=== PATIENT | female | born 1980 | race Hispanic/Latino ===

== ENCOUNTER 2024-05-30 06:18 | Day surgery (SDC) | payer BC, SELFPAY ==
[2024-05-30] VITALS (8 sets, daily range): BP systolic 125–156; BP diastolic 67–97; BMI 21.1
[2024-05-30] MEDS: TYLENOL 1000 MG PO (10:43)
[2024-05-30] MEDS: NORMOSOL-R/PLASMALYTE-A 1000 IV (11:16)
[2024-05-30 11:20] LABS: HCG, Urine Qualitative Screen Negative
--- NOTE | 2024-05-30 12:00 | W.SUR.PREOP ---
Pre-Operative Surgical Note
-
I have examined this patient prior to the performance of the scheduled procedure.
The patient's condition is unchanged from the time of the current History and
Physical and the patient is able to undergo the scheduled procedure.
--- NOTE | 2024-05-30 16:05 | SUR.PHASEI ---
1600 Dr. Mcfarlane reached out about pt's HR 113-122 resting and shoots up into the 130's with movement. No pain or nausea. ST on monitor. Okay to move to [facility]. Will continue to monitor.
--- NOTE | 2024-05-30 17:09 | W.IMMPOSTOP ---
Surgical Immed Post Op Note
-
Primary Surgeon: JOZEF Price MD
Assisting Surgeon:
Pre-op Diagnosis: macromastia, cervicodynia, intertrigo
Post-op Diagnosis: same
Procedure Performed: bilateral breast reduction
Anesthesia Type: General
Specimen / Cultures: Right and left breast tissue
Estimated Blood Loss: 30 cc
Complications: none
Operative Findings: well-perfused nipple areolar complexes
--- NOTE | 2024-05-30 17:09 | OR.RPT ---
Operative Report
Operative Report
date of surgery: 05/30/2024
Surgeon: JOZEF Price MD
Preoperative diagnosis: Macromastia, cervical neck pain, intertrigo
Postoperative diagnosis: Same
Procedure: Bilateral breast reduction
Anesthesia: General
Specimens: Right and left breast tissue
Complications: None
EBL: 30 cc
Indications for procedure: Patient is a 43-year-old female with a longstanding history of bilateral large pendulous breast. Her large breasts have caused her significant upper neck and back pain for which she has failed conservative management.
Conservative management consisted of supportive bras, double bras, physical manipulation NSAIDs etc. She presented desiring a bilateral breast reduction. She met criteria for medical necessity and a prior authorization was obtained. Risk of the
procedure were reviewed including nipple areolar necrosis, seroma, hematoma, delayed wound healing, asymmetry. She understood these risks desired to proceed
Procedure in detail: Patient was identified preoperatively and the surgical site was confirmed to be the bilateral breast. Bilateral Richey pattern superior medial pedicle breast reduction were marked out using the transposed inframammary fold as the
new nipple position. All questions were answered and consents were confirmed. Patient was taken back to the operating room placed supine on the table. Anesthesia was induced and the patient was prepped and draped in usual sterile fashion using
ChloraPrep solution. Timeout for patient safety was performed was confirmed the bilateral SCDs were in place and preoperative antibiotics have been administered. Procedure began with the injection of 1% lidocaine with epinephrine and the proposed
markings. Incision was made with a 15 blade for starting on the right breast. Breast tourniquet was placed and a 42 mm cookie cutter was used to elizabeth the new areola complex. The superior medial pedicle was de-epithelialized with a 10 blade. The
turnicot was released and dissection commenced with Bovie electrocautery. The inferior and lateral specimens were then removed And weighed. A total of 708 g was taken out of the right breast. This had achieved an adequate correction and the
wound was tentatively closed after ensuring meticulous hemostasis. Attention was then drawn to the left side where the exact same procedure was performed. 42 mm cookie cutter marked the new areola the breast was placed under a tourniquet and the
superior medial pedicle was de-epithelialized. 15 blade was used to incise the proposed markings and Bovie electrocautery was used to dissect out the pedicle down the chest wall and excised the inferior and lateral excess breast tissue. On this
side, a total of 856 g was removed, consistent with her baseline asymmetry preoperatively. Meticulous hemostasis was again ensured and the wound was tentatively closed. Patient was then sat upright to them evaluate the relative symmetry. It was
determined that appropriate symmetry had been achieved and an acceptable cosmetic result consistent with the patient's desires was reasonable. Patient was returned supine and a second look was performed on the right breast. the right breast
pocket was hemostatic and subpectoral intercostal blocks were performed with dilute Marcaine. The wound was then closed with 2-0 Vicryl followed by 3-0 Monocryl, the INSORB dermal stapler, and 4-0 Monocryl. The same was then performed on the left
side where a second look was performed and it was determined to be hemostatic. Back and intercostal blocks were performed with dilute Marcaine and then the wound was closed with 2-0 Vicryl followed by 3-0 Vicryl Monocryl, INSORB dermal stapler, 4-0
Monocryl. At the inset of the nipple, the bilateral nipple areolar complexes were well-perfused without evidence of venous congestion. The wounds were dressed with antibiotic ointment, dry gauze, Tegaderms. A compressive bra was placed. Patient
was extubated and taken the PACU for further care. The case was performed without complication and all counts were correct.
== END 2024-05-30 17:35 | disposition home or self-care (01) ==
LOC: SDS 06:18
PROVIDERS: ATTENDING PHYSICIAN Surgery Plastic and Reconstructive Surgery; FAMILY PHYSICIAN Family Medicine
DX: N62 Hypertrophy of breast (principal); M54.2 Cervicalgia; L30.4 Erythema intertrigo
CPT/HCPCS: 19318; 88305; 81025